=== PATIENT | female | born 1955 | race Native Hawaiian/Other Pacific Islander ===

== ENCOUNTER → 2020-08-06 | Emergency (ER) | payer OTHER ==
[2020-08-17 09:32] LABS: PLATELET COUNT 156 K/uL (152-353)
[2020-08-17 09:33] LABS: POTASSIUM 3.8 mmol/L (3.6-5.2)
== END ==
LOC: ED 20:51
PROVIDERS: Family Medicine
DX: R46.89 Other symptoms and signs involving appearance and behavior (principal); F20.0 Paranoid schizophrenia; Z11.52 Encounter for screening for COVID-19; Z04.6 Encounter for general psychiatric examination, requested by authority
CPT/HCPCS: 80053; 85027; 87635; 93005; 99283; U0003